=== PATIENT | female | born 1985 | race Caucasian/White ===

== ENCOUNTER → 2019-05-15 | Day surgery (SDC) | payer OTHER ==
[~2019-05-15] VITALS: Ht 175.3 cm; Wt 103.4 kg
[~2019-05-15] MED LIST: L-LYSINE500 M1 PO; LEXAPRO20 MG PO; METFORMIN HCL500 M3 PO; PROBIOTIC1 EAC7 PO; PROTONIX 20 MG20 MG PO; SINGULAIR 10 MG10 M1 PO; SPIRONOLACTONE100 M1 PO; STOOL SOFTENER100 MG PO; VITAMIN C500 M2 PO; WELLBUTRIN XL300 MG PO
== END | disposition home or self-care (01) ==
LOC: OR 10:50 → TBA 14:21 → OR 14:21
DX: M25.532 Pain in left wrist (principal); Z53.8 Procedure and treatment not carried out for other reasons; K21.9 Gastro-esophageal reflux disease without esophagitis; J45.909 Unspecified asthma, uncomplicated; F32.9 Major depressive disorder, single episode, unspecified; F41.9 Anxiety disorder, unspecified; Z90.49 Acquired absence of other specified parts of digestive tract; Z98.890 Other specified postprocedural states; Z79.899 Other long term (current) drug therapy; Z91.041 Radiographic dye allergy status; Z88.8 Allergy status to other drugs, medicaments and biological substances
CPT/HCPCS: 50010

== ENCOUNTER 2019-06-12 10:00 | Day surgery (SDC) | payer OTHER ==
[~2019-06-12] VITALS: Ht 175.3 cm; Wt 104.3 kg
--- NOTE | ~2019-06-12 | O ---
[facility] [place] [address] OPERATIVE REPORT Name: ALVARO SAMS Room #: 150-14 [facility] M.R.#: [id number] Admission: 06/12/19 Attend Phys: Arabella Coppola, Discharge: Date of : 89 Report #: [id number] THIS REPORT FOR: //name// CC: ANNALEE NASSAR Physician staff Arabella Coppola DATE OF SERVICE: 06/12/2019 PREOPERATIVE DIAGNOSIS: Left wrist pain, possible triangular fibrocartilage complex tear. POSTOPERATIVE DIAGNOSES: 1. Left wrist pain with grade 1 scapholunate ligament injury. 2. Partial lunotriquetral ligament tear. PROCEDURE PERFORMED: Left wrist arthroscopy with scapholunate thermal shrinkage, debridement of lunotriquetral ligament with lunotriquetral pinning. SURGEON: Arabella Coppola MD ANESTHESIA: General mask anesthesia. ESTIMATED BLOOD LOSS: Minimal. TOURNIQUET TIME: Approximately 50 minutes. COMPLICATIONS: None. CONDITION: Stable. DISPOSITION: Recovery room. INDICATIONS: The patient is a 33-year-old female with the above-mentioned diagnosis. She elects for operative treatment. The risks, benefits, alternatives and complications were discussed including but not limited to infection, damage to vessels or nerves, no change or worsening of any symptoms. Informed consent was obtained. The correct extremity was identified and labeled by myself after verbal confirmation of the patient as well as visual confirmation and signed informed consent. DESCRIPTION OF PROCEDURE: The patient was brought back to the operating room and placed on the operating table in the supine position. She received preoperative antibiotics. Tourniquet was placed over padding on the patient's left upper extremity. Left upper extremity was sterilely prepped and draped in the usual fashion. Final timeout was taken to verify correct patient, operative [facility] [address] [address] OPERATIVE REPORT Name: ALVARO SAMS Room #: 150-14 [facility].#: [id number] Admission: 06/12/19 Attend Phys: Arabella Coppola, Discharge: Date of : 89 Report #: [id number] procedure, operative site, all concurred. The left upper extremity was placed into finger trap traction, maintained in approximately 10-15 pounds. Careful attention was placed to padding bony prominences and neurovascular structures. The arm was elevated, exsanguinated and tourniquet inflated. Next, a 3/4 portal was localized with a needle. The skin only was incised. Dissection was carried down with a hemostat, blunt trocar and cannula was inserted. The scope was then inserted and a cursory examination was undertaken without fluid in the joint. The volar ligaments looked to be in excellent condition. These were all seen on page 1. The scaphoid cartilage, radius cartilage and lunate cartilage looked to be in good condition. The scapholunate ligament looked to be bulging in the membranous portion. The fovea was evaluated and there was no significant synovitis. Then, the 4/5 portal was localized with a needle. The skin only was incised. Dissection was carried down bluntly with hemostat and blunt trocar was inserted. A probe was inserted and the scapholunate ligament was evaluated. This was seen on page 2. There again was some bulging in the membranous portion. Next, the joint was insufflated and a 2.0 full radius resector was placed into the 4/5 portal. Some very mild amount of synovitis was debrided. Some fibrillation on the lunate was debrided as well. Next, a probe was used to evaluate the TFCC. It had excellent turgor. There were no indentations with palpation proximally and a significant examination was undertaken to evaluate for any full-thickness central tear and none was found. The pull test did not show any evidence of instability. The trampoline test showed good turgor. This was seen on page 3. The dorsal scapholunate ligament looked to be in excellent condition. Next, the scope was placed in the 4/5 portal and 6R portal was localized with a needle. Skin only was incised. Dissection was carried down with hemostat and blunt trocar was inserted. A probe was inserted and lunotriquetral ligament was found to have a partial tear. It was debrided with an arthroscopic shaver. This can be seen on the 5th picture on page 3. Next, an ulnar midcarpal portal was localized with a needle. Skin only was incised. The dissection was carried down with hemostat and blunt trocar was inserted. The camera was inserted. Of note, there was no fluid from the radiocarpal joint into the midcarpal joint. The radial midcarpal portal was localized with a needle. The skin only was incised. Blunt trocar was inserted and the shaver was inserted. The 6th picture on page 3 shows debridement of a mild amount of synovitis in the midcarpal space. Next, the probe was placed in the scapholunate and lunotriquetral spaces were evaluated. There was no evidence of instability or step-off. The cartilage looked to be in good condition. Next, instrumentation was taken back to the radiocarpal joint. An outflow portal was created using a 20-gauge needle from the 6R portal site and careful attention was placed to continuous fluid exiting this portal site during the shrinkage. The scope was placed in the 3/4 portal and the Vulcan wand was placed in the 4/5 portal and the scapholunate ligament was shrunk using this. This can be seen on the last image. This did provide improved turgor to the membranous portion of the ligament. Next, the joint was thoroughly irrigated and water was cooled throughout the entire procedure. The instrumentation was removed. The patient was taken out of finger trap traction and two 0.045-inch K-wires were placed [facility] [address] [place] [address] OPERATIVE REPORT Name: ALVARO SAMS Room #: [address] M..#: [id number] Admission: 06/12/19 Attend Phys: Arabella Coppola, Discharge: Date of : 89 Report #: [id number] from the triquetrum to the lunate using fluoroscopic guidance in both AP and lateral planes. They were found to be in good condition. Ulnar deviation view did not show any increased space between the scaphoid and the lunate. The pins were cut beneath the skin. The subcutaneous tissue was infiltrated with approximately 10 mL of 0.25% Marcaine. She was placed in a bulky dressing and a volar slab splint. All fingers were pink with brisk capillary refill at the conclusion of the case after deflation of tourniquet. All sponge and needle counts were correct. The patient was transferred to postoperative recovery room in stable condition. By: [id number] Arabella Coppola MD /tera
[~2019-06-12 10:00] MED LIST changes: +AIRBORNE GUMMI1 EACH PO; +BLACK ELDERBER1 EACH PO; +CALCIUM + D SO1 EACH PO; +CHEWABLE-VITE1 EAC1 PO; +PREDNISONE 10 M10 M1
[2019-06-12 10:45] LABS: CALCIUM 9.5 mg/dL (8.5-10.1); POTASSIUM 3.6 mmol/L (3.5-5.1)
[2019-06-12 10:59] VITALS: BP 129/81
[2019-06-12 13:59] VITALS: BP 129/81
== END 2019-06-12 15:50 | disposition home or self-care (01) ==
LOC: OR 10:00 → TBA 10:02 → OR 11:24
PROVIDERS: Orthopaedic Surgery Hand Surgery
DX: M25.532 Pain in left wrist (principal); S63.512A Sprain of carpal joint of left wrist, initial encounter; F32.9 Major depressive disorder, single episode, unspecified; F41.9 Anxiety disorder, unspecified; K21.9 Gastro-esophageal reflux disease without esophagitis; Z98.890 Other specified postprocedural states; Z91.041 Radiographic dye allergy status; Z88.8 Allergy status to other drugs, medicaments and biological substances; Z90.49 Acquired absence of other specified parts of digestive tract; Z79.899 Other long term (current) drug therapy; X58.XXXA Exposure to other specified factors, initial encounter; Y93.89 Activity, other specified; Y92.89 Other specified places as the place of occurrence of the external cause; Y99.8 Other external cause status
CPT/HCPCS: 50010; 50101; 50386; 51291; 51736; 56526; 57006; 57091; 57178; 62110; 62900; 64039; 70005

== ENCOUNTER 2019-07-24 10:49 | Day surgery (SDC) | payer OTHER ==
[~2019-07-24] VITALS: Ht 175.3 cm; Wt 108.9 kg
--- NOTE | ~2019-07-24 | O ---
[facility] [place] [address] OPERATIVE REPORT Name: ALVARO SAMS Room #: DEP [facility] M.R.#: [id number] Admission: 07/24/19 Attend Phys: Arabella Coppola, Discharge: 07/24/19 Date of : 89 Report #: [id number] THIS REPORT FOR: //name// CC: ANNALEE NASSAR Physician staff Arabella Coppola DATE OF SERVICE: 07/24/2019 PREOPERATIVE DIAGNOSIS: Retained K-wires, left wrist. POSTOPERATIVE DIAGNOSIS: Retained K-wires, left wrist. PROCEDURE PERFORMED: Removal of deep K-wires, left wrist, buried, planned removal. SURGEON: Arabella Coppola MD ANESTHESIA: Local MAC anesthesia. ESTIMATED BLOOD LOSS: Minimal. TOURNIQUET TIME: None. COMPLICATIONS: None. CONDITION: Stable. DISPOSITION: Recovery room. INDICATIONS: The patient is a 33-year-old female with the above-mentioned diagnosis. She elects for operative treatment. The risks, benefits, alternatives and complications were discussed including but not limited to infection, damage to vessels or nerves, incomplete relief of her symptoms or inability to remove the K-wires. Informed consent was obtained. The correct extremity was identified and labeled by myself after verbal confirmation of the patient as well as visual confirmation and signed informed consent. DESCRIPTION OF PROCEDURE: The patient was brought back to the Operating Room and placed on the operating room table in supine position. She received preoperative antibiotics. Tourniquet was placed over padding on the patient's left upper extremity. Left upper extremity was sterilely prepped and draped in the usual fashion. Final timeout was taken to verify correct patient, operative procedure, operative site, all concurred. After adequate sedation was achieved, a total of approximately 3 mL of mixture of 0.25% Marcaine and 1% lidocaine was injected subcutaneously at the proposed incision site. The pins were palpable. [facility] [address] [place] [address] OPERATIVE REPORT Name: ALVARO SAMS Room #: DEP [facility].#: [id number] Admission: 07/24/19 Attend Phys: Arabella Coppola, Discharge: 07/24/19 Date of : 89 Report #: [id number] After adequate anesthesia was obtained, approximately 1 cm incision was made over the K-wires. The K-wires were removed without difficulty. The wound was thoroughly irrigated. Fluoroscopy was brought in, which showed good position of the carpal bones and absence of the hardware. The wound was thoroughly irrigated. Skin was closed with 4-0 nylon suture. Wound was dressed with Adaptic and sterile gauze. She was placed in a bulky dressing and a volar slab splint. All fingers were pink with brisk capillary refill at the conclusion of case after deflation of tourniquet. All sponge and needle counts were correct. The patient was transferred to postoperative recovery room in stable condition. By: [id number] Arabella Coppola MD /nt
[~2019-07-24 10:49] MED LIST changes: +ALEVE220 M1 PO; +TRAMADOL 50 MG50 MG PO
[2019-07-24 11:46] LABS: CALCIUM 9.8 mg/dL (8.5-10.1); CREATININE 0.7 mg/dL (0.6-1.0); POTASSIUM 4.2 mmol/L (3.5-5.1)
[2019-07-24 11:47] VITALS: BP 135/76
[2019-07-24 14:14] VITALS: BP 135/76
== END 2019-07-24 15:00 | disposition home or self-care (01) ==
LOC: OR 10:49 → TBA 10:53 → OR 13:50
PROVIDERS: Orthopaedic Surgery Hand Surgery
DX: T84.84XA Pain due to internal orthopedic prosthetic devices, implants and grafts, initial encounter (principal); M25.532 Pain in left wrist; J45.909 Unspecified asthma, uncomplicated; F32.9 Major depressive disorder, single episode, unspecified; F41.9 Anxiety disorder, unspecified; K21.9 Gastro-esophageal reflux disease without esophagitis; Z90.49 Acquired absence of other specified parts of digestive tract; Z98.890 Other specified postprocedural states; Z79.899 Other long term (current) drug therapy; Z91.041 Radiographic dye allergy status; Z88.8 Allergy status to other drugs, medicaments and biological substances; Y83.8 Other surgical procedures as the cause of abnormal reaction of the patient, or of later complication, without mention of misadventure at the time of the procedure
CPT/HCPCS: 50010; 50101; 50386; 56526; 57006; 57091; 62110; 62850; 70005